=== PATIENT | male | born 1940 | race Hispanic/Latino ===

== ENCOUNTER 2020-02-28 21:57 | Inpatient (IN) | payer MEDICARE, OTHER ==
[~2020-02-28] VITALS: Ht 180.3 cm; Wt 105.5 kg
[~2020-02-28 21:57] MED LIST: APIX5TAB PO; LEVO500T2 PO; LOSA50TA64 PO
[2020-02-28] MEDS ORDERED: ACETAMINOPHEN ELIXIR 650 MG/20.3 ML UDCUP ONE (22:37)
[2020-02-28] MEDS ORDERED: SODIUM CHLORIDE 0.9% 1000ML 1,000 ML IV ONE (22:38)
[2020-02-28 22:43] LABS: BASOPHILS % (AUTO) 0.2 % (0.0-5.0); EOSINOPHILS % (AUTO) 0.3 % (0.0-8.0); HEMATOCRIT 43.2 % (42-54); MEAN CORPUSCULAR HEMOGLOBIN 30.7 pg (27.0-33.0); MEAN CORPUSCULAR HGB CONC 34.7 g/dL (32.0-36.0); MEAN CORPUSCULAR VOLUME 88.3 fL (79-99); MONOCYTES % (AUTO) 5.8 % (3.0-13.0); NEUTROPHILS % (AUTO) 84.4 % (40.0-77.0); PLATELET COUNT (AUTO) 122 K/uL (130-400); RED BLOOD CELL COUNT(AUTO) 4.89 MIL/uL (4.50-6.20); RED CELL DISTRIBUTION WIDTH 13.1 % (11.0-15.5)
[2020-02-28 22:55] LABS: CREATININE 1.4 mg/dL (0.5-1.5); POTASSIUM 3.5 mmol/L (3.5-5.1)
[2020-02-28 22:59] LABS: ALBUMIN 2.8 g/dL (3.5-5.0); BILIRUBIN,TOTAL 1.2 mg/dL (0.2-1.0); TOTAL PROTEIN, SERUM 7.6 g/dL (6.0-8.3)
[2020-02-28 23:04] LABS: APPEARANCE,URINE Cloudy (CLEAR); BILIRUBIN,URINE Negative (NEGATIVE); COLOR,URINE Yellow (YELLOW); GLUCOSE, URINE (UA) Negative (NEGATIVE); KETONES,URINE Trace mg/dL (NEGATIVE); LEUKOCYTE ESTERASE ,URINE Moderate (NEGATIVE); NITRATE,URINE Negative (NEGATIVE); OCCULT BLOOD,URINE Moderate (NEGATIVE); PROTEIN,URINE 300 mg/dL (NEGATIVE)
[2020-02-28 23:13] LABS: BACTERIA,URINE Rare /HPF (None Seen); SQUAMOUS EPITHELIAL CELL,UR Rare /HPF (0-2); WBC,URINE 26-50 /HPF (0-1)
[2020-02-28] MEDS ORDERED: CEFTRIAXONE SODIUM 1 GM ONE (23:16)
[2020-02-29] MEDS ORDERED: CEFTRIAXONE SODIUM 1 GM IV SCH ×2 (00:30→23:00)
[2020-02-29] MEDS ORDERED: LACTULOSE 20 GM/30 ML UDCUP PO PRN (00:30)
[2020-02-29] MEDS ORDERED: ACETAMINOPHEN 325 MG TAB PO PRN (00:30)
[2020-02-29] MEDS: SODIUM CHLORIDE 0.9% 1000ML 1,000 ML IV SCH ×3 (00:30→20:30)
[2020-02-29] MEDS ORDERED: ONDANSETRON HCL 4 MG/2 ML VIAL IV PRN (00:30)
[2020-02-29 06:00] VITALS: BP 140/63
[2020-02-29 07:26] VITALS: BP 143/77
[2020-02-29] MEDS: FAMOTIDINE 20MG TAB 20 MG TAB PO SCH ×2 (08:16→20:04)
[2020-02-29 08:57] LABS: BASOPHILS % (AUTO) 0.3 % (0.0-5.0); LYMPHOCYTES % (AUTO) 12.7 % (21.0-51.0); MEAN CORPUSCULAR HEMOGLOBIN 30.5 pg (27.0-33.0); MEAN CORPUSCULAR HGB CONC 33.6 g/dL (32.0-36.0); MEAN CORPUSCULAR VOLUME 90.9 fL (79-99); MONOCYTES % (AUTO) 13.2 % (3.0-13.0); NEUTROPHILS % (AUTO) 72.4 % (40.0-77.0); PLATELET COUNT (AUTO) 126 K/uL (130-400); RED BLOOD CELL COUNT(AUTO) 4.95 MIL/uL (4.50-6.20); RED CELL DISTRIBUTION WIDTH 13.6 % (11.0-15.5); WHITE BLOOD COUNT (AUTO) 7.8 K/uL (4.8-10.8)
[2020-02-29] MEDS ORDERED: ENOXAPARIN SODIUM 40 MG/0.4 ML SYRINGE SQ SCH (09:00)
[2020-02-29 09:09] LABS: ALBUMIN 2.7 g/dL (3.5-5.0); BILIRUBIN,TOTAL 0.9 mg/dL (0.2-1.0); CREATININE 1.3 mg/dL (0.5-1.5); POTASSIUM 3.9 mmol/L (3.5-5.1); TOTAL PROTEIN, SERUM 7.7 g/dL (6.0-8.3)
[2020-02-29 11:21] VITALS: BP 149/94
--- NOTE | 2020-02-29 14:28 | NUR ---
CM NOTE/IA MET WITH PATIENT AND SPOUSE AT BEDSIDE. PER SPOUSE, SHE MAKES ALL DECISIONS FOR PATIENT. STATES PATIENT LIVES WITH HER AND 2 MINOR GRANDCHILDREN, PATIENT IS DEPENDENT WITH ALL ADLS, HAS HOSPITAL BED, WC AND WOODEN DYI SHOWER BENCH, NO HH OR PROVIDER SERVICES, NO DIALYSIS AND FEELS SAFE TO RETURN HOME BUT OPEN TO SNF OR INPATIENT REHAB. PER SPOUSE, PATIENT HAS GOTTEN WEAKER AND NOW REQUIRES ALOT OF HELP SHE FEELS FRUSTRATED THAT MEDICAL TEAM AT [facility] DID NOT TELL HER WHAT WAS WRONG WITH PATIENT AND FEELS LIKE HIS HEALTH HAD DECREASED SINCE PREVIOUS HOSPITALIZATION. REPORT GIVEN TO DR. HOU INCLUDING HER OPENNESS TO SNF OR IRU. THIS CM TO FOLLOW UP. Addendum: 02/29/20 at 1442 by RIKA RODRIGUEZ RN CM Amended: Links added.
--- NOTE | 2020-02-29 15:07 | NUR ---
[id number] patient signed IM Letter, I faxed IM Letter to [phone] and placed in chart under consent tab.
[2020-02-29 16:29] VITALS: BP 168/88
[2020-02-29 19:55] VITALS: BP 162/92
[2020-02-29] MEDS: ENOXAPARIN SODIUM 100 MG/1 ML SQ SCH (20:04)
[2020-02-29] MEDS: ACETAMINOPHEN 325 MG TAB PO PRN (20:05)
[2020-02-29] MEDS: CEFTRIAXONE SODIUM 1 GM IV SCH (23:07)
[2020-02-29 23:38] VITALS: BP 157/93
[2020-03-01] MEDS: HYDRALAZINE HCL 20 MG/ML VIAL IV PRN ×2 (03:24→21:12)
[2020-03-01 03:43] VITALS: BP 180/85
[2020-03-01 04:07] VITALS: BP 152/75
[2020-03-01 05:50] LABS: BASOPHILS % (AUTO) 0.4 % (0.0-5.0); EOSINOPHILS % (AUTO) 2.2 % (0.0-8.0); HEMATOCRIT 44.4 % (42-54); LYMPHOCYTES % (AUTO) 21.4 % (21.0-51.0); MEAN CORPUSCULAR HEMOGLOBIN 30.4 pg (27.0-33.0); MEAN CORPUSCULAR HGB CONC 33.8 g/dL (32.0-36.0); MEAN CORPUSCULAR VOLUME 89.9 fL (79-99); MONOCYTES % (AUTO) 15.1 % (3.0-13.0); NEUTROPHILS % (AUTO) 60.5 % (40.0-77.0); PLATELET COUNT (AUTO) 136 K/uL (130-400); RED BLOOD CELL COUNT(AUTO) 4.94 MIL/uL (4.50-6.20); RED CELL DISTRIBUTION WIDTH 13.6 % (11.0-15.5); WHITE BLOOD COUNT (AUTO) 5.4 K/uL (4.8-10.8)
[2020-03-01] MEDS: SODIUM CHLORIDE 0.9% 1000ML 1,000 ML IV SCH ×3 (06:30→21:29)
[2020-03-01 06:41] LABS: CREATININE 1.2 mg/dL (0.5-1.5)
[2020-03-01 07:00] VITALS: BP 162/94
[2020-03-01 07:19] LABS: POTASSIUM 3.7 mmol/L (3.5-5.1)
[2020-03-01] MEDS: FAMOTIDINE 20MG TAB 20 MG TAB PO SCH ×2 (08:33→20:43)
[2020-03-01] MEDS: LOSARTAN 50 MG TABLET PO SCH (08:33)
[2020-03-01] MEDS: ENOXAPARIN SODIUM 100 MG/1 ML SQ SCH ×2 (08:33→20:44)
--- NOTE | 2020-03-01 10:07 | NUR ---
DR. GALLEGOS MADE AWARE OF PENDING CONSULT
--- NOTE | 2020-03-01 10:07 | NUR ---
CALL OUT PLACED TO DR. MARRERO OFFICE SPOKE WITH CAMELIA MADE AWARE OF PENDING CONSULT
[2020-03-01 11:00] VITALS: BP 169/85
[2020-03-01] MEDS: CEFTRIAXONE SODIUM 1 GM IV SCH ×2 (11:13→23:01)
[2020-03-01 16:00] VITALS: BP 163/86
[2020-03-01 20:00] VITALS: BP 163/97
[2020-03-02] VITALS (7 sets, daily range): BP systolic 133–158; BP diastolic 76–94
[2020-03-02] MEDS: FAMOTIDINE 20MG TAB 20 MG TAB PO SCH ×2 (07:57→20:41)
[2020-03-02] MEDS: LOSARTAN 50 MG TABLET PO SCH (07:57)
[2020-03-02] MEDS: ENOXAPARIN SODIUM 100 MG/1 ML SQ SCH ×2 (07:57→20:42)
[2020-03-02] MEDS: CEFTRIAXONE SODIUM 1 GM IV SCH ×2 (11:31→22:35)
[2020-03-02] MEDS ORDERED: LACTULOSE 20 GM/30 ML UDCUP PO PRN (13:15)
[2020-03-03 04:24] VITALS: BP 150/92
[2020-03-03 06:02] LABS: BASOPHILS % (AUTO) 0.3 % (0.0-5.0); CREATININE 1.2 mg/dL (0.5-1.5); EOSINOPHILS % (AUTO) 3.8 % (0.0-8.0); HEMATOCRIT 43.5 % (42-54); LYMPHOCYTES % (AUTO) 26.3 % (21.0-51.0); MAGNESIUM 2.2 mg/dL (1.80-2.40); MEAN CORPUSCULAR HEMOGLOBIN 30.2 pg (27.0-33.0); MEAN CORPUSCULAR HGB CONC 33.8 g/dL (32.0-36.0); MEAN CORPUSCULAR VOLUME 89.5 fL (79-99); MONOCYTES % (AUTO) 12.5 % (3.0-13.0); NEUTROPHILS % (AUTO) 56.8 % (40.0-77.0); PLATELET COUNT (AUTO) 151 K/uL (130-400); POTASSIUM 3.6 mmol/L (3.5-5.1); RED BLOOD CELL COUNT(AUTO) 4.86 MIL/uL (4.50-6.20); RED CELL DISTRIBUTION WIDTH 13.5 % (11.0-15.5); WHITE BLOOD COUNT (AUTO) 5.8 K/uL (4.8-10.8)
[2020-03-03 07:59] VITALS: BP 164/82
[2020-03-03] MEDS: FAMOTIDINE 20MG TAB 20 MG TAB PO SCH ×2 (08:26→20:18)
[2020-03-03] MEDS: LOSARTAN 50 MG TABLET PO SCH (08:26)
[2020-03-03] MEDS: ENOXAPARIN SODIUM 100 MG/1 ML SQ SCH ×2 (08:27→20:18)
[2020-03-03 11:28] VITALS: BP 142/63
--- NOTE | 2020-03-03 11:51 | NUR ---
TOLERATED STANDING X 5 MINUTES WITH MIN A. ABLE TO MARCH IN PLACE MINIMALLY. Addendum: 03/03/20 at 1152 by MOIZ RUBALCAVA PT Amended: Links added.
[2020-03-03] MEDS: CEFTRIAXONE SODIUM 1 GM IV SCH ×2 (12:24→23:09)
[2020-03-03 15:29] VITALS: BP 145/80
[2020-03-03 20:00] VITALS: BP 136/82
[2020-03-03 23:51] VITALS: BP 139/76
[2020-03-04 03:48] VITALS: BP 150/85
[2020-03-04 07:35] VITALS: BP 154/89
[2020-03-04] MEDS: FAMOTIDINE 20MG TAB 20 MG TAB PO SCH ×2 (08:17→19:03)
[2020-03-04] MEDS: LOSARTAN 50 MG TABLET PO SCH (08:17)
[2020-03-04] MEDS: ENOXAPARIN SODIUM 100 MG/1 ML SQ SCH (08:18)
[2020-03-04] MEDS: CEFTRIAXONE SODIUM 1 GM IV SCH ×2 (11:27→19:04)
[2020-03-04 11:53] VITALS: BP 145/85
[2020-03-04] MEDS: AMLODIPINE BESYLATE 5 MG TAB PO SCH (13:20)
[2020-03-04 16:26] VITALS: BP 138/79
[2020-03-04] MEDS ORDERED: APIXABAN 5 MG TABLET PO ONE (18:25)
[2020-03-04] MEDS: APIXABAN 5 MG TABLET PO SCH ×2 (19:03→19:04)
--- NOTE | 2020-03-04 19:32 | NUR ---
cm note spoke to pt regarding snf pt is agreeable requested I speak to , and called her on phone also agreeable choice letter obtained for [facility]. requested nurse perico to obtain covid swab for testing.
--- NOTE | 2020-03-04 20:00 | NUR ---
patient awake alert and oriented times 3. patient speaks portuguese and has no pain. patient voided in a urinal. patient's rapid covid antigen is negative, pending pcr results. patient is working with physical therapist is the day and is pending approval in [facility].
[2020-03-04 20:12] VITALS: BP 162/97
[2020-03-04 23:54] VITALS: BP 143/75
[2020-03-05 04:08] VITALS: BP 139/75
[2020-03-05 07:37] VITALS: BP 145/77
[2020-03-05] MEDS: LOSARTAN 50 MG TABLET PO SCH (08:25)
[2020-03-05] MEDS: FAMOTIDINE 20MG TAB 20 MG TAB PO SCH ×2 (08:25→21:10)
[2020-03-05] MEDS: APIXABAN 5 MG TABLET PO SCH ×2 (08:25→21:10)
[2020-03-05] MEDS: AMLODIPINE BESYLATE 5 MG TAB PO SCH ×2 (08:25→08:28)
[2020-03-05] MEDS: CEFTRIAXONE SODIUM 1 GM IV SCH ×2 (11:02→23:08)
[2020-03-05 11:30] VITALS: BP 127/69
--- NOTE | 2020-03-05 14:55 | NUR ---
CM NOTE/CHANGE TO [facility] CALL RECEIVED FROM NURSING STATING SPOUSE AT BEDSIDE AND WANTS TO CHANGED SNF FROM [facility] TO [facility]. MET SPOUSE IN ROOM, IAN COMPLETED FOR [facility]. [facility] CALLED, CLINICAL REFERRAL FAXED AND EMAILED TO [facility]. PENDING AUTHORIZATION AND COVID TO RESULT. CM TO FOLLOW UP.
[2020-03-05 15:39] VITALS: BP 139/75
--- NOTE | 2020-03-05 19:00 | NUR ---
DC PLAN As per am nurse report,pt is pending acceptance from [facility].
[2020-03-05 19:15] VITALS: BP 152/80
[2020-03-05] MEDS: ACETAMINOPHEN 325 MG TAB PO PRN (21:19)
[2020-03-05 23:24] VITALS: BP 158/85
[2020-03-06 03:40] VITALS: BP 136/62
[2020-03-06 05:31] LABS: ALBUMIN 2.7 g/dL (3.5-5.0); BILIRUBIN,TOTAL 0.4 mg/dL (0.2-1.0); CREATININE 1.4 mg/dL (0.5-1.5); MAGNESIUM 2.2 mg/dL (1.80-2.40); PHOSPHORUS 3.7 mg/dL (2.5-4.9); POTASSIUM 4.3 mmol/L (3.5-5.1); TOTAL PROTEIN, SERUM 7.5 g/dL (6.0-8.3)
--- NOTE | 2020-03-06 06:07 | NUR ---
NURSING Pt bathed per staff.
[2020-03-06 07:56] VITALS: BP 134/76
[2020-03-06] MEDS: AMLODIPINE BESYLATE 5 MG TAB PO SCH ×2 (08:13→11:11)
[2020-03-06] MEDS: LOSARTAN 50 MG TABLET PO SCH (08:14)
[2020-03-06] MEDS: FAMOTIDINE 20MG TAB 20 MG TAB PO SCH ×2 (08:14→20:08)
[2020-03-06] MEDS: APIXABAN 5 MG TABLET PO SCH ×2 (08:15→20:08)
[2020-03-06] MEDS: CEFTRIAXONE SODIUM 1 GM IV SCH ×2 (11:40→23:27)
[2020-03-06 11:50] VITALS: BP 119/77
[2020-03-06 16:10] VITALS: BP 135/84
[2020-03-06 20:10] VITALS: BP 169/90
[2020-03-06 23:28] VITALS: BP 138/92
[2020-03-07 04:00] VITALS: BP 134/90
[2020-03-07 08:08] VITALS: BP 136/79
[2020-03-07] MEDS: FAMOTIDINE 20MG TAB 20 MG TAB PO SCH ×2 (09:17→19:27)
[2020-03-07] MEDS: AMLODIPINE BESYLATE 5 MG TAB PO SCH ×2 (09:17→11:53)
[2020-03-07] MEDS: APIXABAN 5 MG TABLET PO SCH ×2 (09:17→19:27)
[2020-03-07] MEDS: LOSARTAN 50 MG TABLET PO SCH (09:17)
[2020-03-07 12:08] VITALS: BP 114/69
[2020-03-07] MEDS: CEFTRIAXONE SODIUM 1 GM IV SCH ×2 (12:28→22:32)
--- NOTE | 2020-03-07 14:57 | NUR ---
CM NOTE/[facility] AUTH PER [facility] AT [facility], RECEIVED AUTH FOR FACILITY BUT NOT IN NETWORK. I CALLED SARAH AT [facility], PATIENTS INSURANCE, WHO CONFIRMED AUTH BUT STATES FACILITY IS IN NETWORK. [facility] CALLED AND GIVEN SARAH PHONE NUMBER TO CONFIRM AND CLARIFY AUTH/NETWORK. [facility] CALLED ME AND STATES THAT AUTH CLARIFIED AND SNF IS IN NETWORK BUT DOES NOT HAVE BED AT THE MOMENT, OPEN BED NOT UNTIL 03/08/20. DR. NOONAN AND PRIMARY NURSE, JAVIER WIGGINS, MADE AWARE. POSS DC TO [facility] ON 03/08 VIA EMS PLANNED. EMS FORMS AND MED REC IN CHART FOR USE.
--- NOTE | 2020-03-07 15:56 | NUR ---
RDSCREEN - LOS X 7 Pt admitted with Fever, UTI. Resolved Sepsis, resolving UTI as per MD note. Pt is tolerating Heart Healthy diet order with no report of GI distress, PO intake at 75-100%. Pt LBM 03/05. Obesity Class I. Monitored labs: BUN 20, GFR 52, Alb 2.7. Recommend continue Heart healthy Diet order. RD to continue to monitor. Please notify as additional nutrition concerns arise. Thank you.
[2020-03-07 16:42] VITALS: BP 122/70
[2020-03-07 19:00] VITALS: BP 145/83
[2020-03-07 22:51] VITALS: BP 137/78
[2020-03-08 04:07] VITALS: BP 128/76
[2020-03-08] MEDS: APIXABAN 5 MG TABLET PO SCH ×2 (08:35→19:22)
[2020-03-08] MEDS: FAMOTIDINE 20MG TAB 20 MG TAB PO SCH ×2 (08:35→19:22)
[2020-03-08] MEDS: AMLODIPINE BESYLATE 5 MG TAB PO SCH ×2 (08:35→11:15)
[2020-03-08] MEDS: LOSARTAN 50 MG TABLET PO SCH (08:35)
[2020-03-08 08:44] VITALS: BP 133/78
[2020-03-08 12:00] VITALS: BP 127/76
[2020-03-08] MEDS: CEFTRIAXONE SODIUM 1 GM IV SCH ×2 (12:01→22:11)
[2020-03-08 16:00] VITALS: BP 141/72
[2020-03-08 20:00] VITALS: BP 131/78
[2020-03-09] VITALS: BP 135/77
[2020-03-09 04:00] VITALS: BP 141/75
[2020-03-09] MEDS: LOSARTAN 50 MG TABLET PO SCH (08:22)
[2020-03-09] MEDS: AMLODIPINE BESYLATE 5 MG TAB PO SCH ×2 (08:22→12:45)
[2020-03-09] MEDS: APIXABAN 5 MG TABLET PO SCH ×2 (08:22→20:42)
[2020-03-09] MEDS: FAMOTIDINE 20MG TAB 20 MG TAB PO SCH ×2 (08:22→20:41)
[2020-03-09 09:09] VITALS: BP 133/67
[2020-03-09] MEDS: CEFTRIAXONE SODIUM 1 GM IV SCH ×3 (11:26→20:45)
[2020-03-09 12:00] VITALS: BP 121/72
[2020-03-09 16:00] VITALS: BP 155/99
--- NOTE | 2020-03-09 16:30 | NUR ---
[facility] REPORT REPORT CALLED TO [facility]. IV DISCONTINUED. EMS TRANSPORT CALLED WELL.
[2020-03-09 20:47] VITALS: BP 154/87
--- NOTE | 2020-03-09 21:20 | NUR ---
TRANSFERRED PT TRANSFERRED VIA STRETCHER WITH EMS, TRANSPORTING TO [facility]. PT AWAKE AND ALERT, NO PAIN NO DISTRESS. PTS SPOUSE TOOK PTS WHEELCHAIR WITH HER.
== END 2020-03-09 21:26 | DRG 872 ==
LOC: EDH 21:57 → OBSVTOIN 02-29 00:30 → EDHIP 02-29 00:30 → 4BH 02-29 06:00
PROVIDERS: ADMIT Internal Medicine; ATTEND Internal Medicine
DX: A41.9 Sepsis, unspecified organism (principal); D68.59 Other primary thrombophilia; N39.0 Urinary tract infection, site not specified; G91.2 (Idiopathic) normal pressure hydrocephalus; I82.412 Acute embolism and thrombosis of left femoral vein; I82.432 Acute embolism and thrombosis of left popliteal vein; E87.1 Hypo-osmolality and hyponatremia; I10 Essential (primary) hypertension; F79 Unspecified intellectual disabilities; E78.5 Hyperlipidemia, unspecified; R32 Unspecified urinary incontinence; R53.1 Weakness; D69.6 Thrombocytopenia, unspecified; R26.2 Difficulty in walking, not elsewhere classified; Z20.828 Contact with and (suspected) exposure to other viral communicable diseases; Z74.01 Bed confinement status; Z79.899 Other long term (current) drug therapy; Z79.01 Long term (current) use of anticoagulants
CPT/HCPCS: 36415; 70450; 71045; 74176; 80048; 80053; 81001; 82948; 83605; 83735; 84100; 84145; 85025; 85220; 85300; 85303; 85306; 87040; 87088; 87426; 93970; 97039; 99291; G0378; J0360; J0696; J1650; J7030; U0003

== ENCOUNTER 2020-06-04 15:17 | Inpatient (IN) | payer OTHER, MEDICARE ==
[~2020-06-04] VITALS: Ht 160 cm; Wt 79.9 kg
[~2020-06-04 15:17] MED LIST changes: -APIX5TAB PO; -LEVO500T2 PO; +LEVO750T46 PO
[2020-06-04] MEDS ORDERED: 0.9%NACL 1000ML 1,000 ML IV ONE (15:42)
[2020-06-04] MEDS ORDERED: ACETAMINOPHEN 500 MG TABLET ONE (15:42)
[2020-06-04 16:04] LABS: BASOPHILS % (AUTO) 0.2 % (0.0-5.0); EOSINOPHILS % (AUTO) 0.6 % (0.0-8.0); HEMATOCRIT 43.7 % (42-54); LYMPHOCYTES % (AUTO) 7.7 % (21.0-51.0); MEAN CORPUSCULAR HEMOGLOBIN 30.7 pg (27.0-33.0); MEAN CORPUSCULAR HGB CONC 34.1 g/dL (32.0-36.0); MEAN CORPUSCULAR VOLUME 89.9 fL (79-99); MONOCYTES % (AUTO) 7.3 % (3.0-13.0); PLATELET COUNT (AUTO) 132 K/uL (130-400); RED BLOOD CELL COUNT(AUTO) 4.86 MIL/uL (4.50-6.20); RED CELL DISTRIBUTION WIDTH 13.2 % (11.0-15.5); WHITE BLOOD COUNT (AUTO) 8.6 K/uL (4.8-10.8)
[2020-06-04 16:14] LABS: INR 1.18 (0.85-1.15); PROTHROMBIN TIME 12.4 SEC (9.6-11.6)
[2020-06-04 16:15] LABS: PARTIAL THROMBOPLASTIN TIME 38.4 SEC (26.3-35.5)
[2020-06-04 16:37] LABS: CARBON DIOXIDE 26 mmol/L (21-32); CHLORIDE 98 mmol/L (101-111); CREATININE 1.5 mg/dL (0.5-1.5); GLOMERULAR FILTR. RATE CALC 48 mL/min (>60); GLUCOSE,RANDOM 119 mg/dL (70-105); POTASSIUM 3.7 mmol/L (3.5-5.1); SODIUM SERUM 137 mmol/L (136-145); UREA NITROGEN, BLOOD 17 mg/dL (7-18)
[2020-06-04 16:50] LABS: ALANINE AMINOTRANSFERASE 39 U/L (12-78); ALBUMIN 3.4 g/dL (3.5-5.0); ASPARTATE AMINOTRANSFERASE 35 U/L (10-37); BILIRUBIN,TOTAL 1.6 mg/dL (0.2-1.0); CREATINE KINASE, TOTAL 92 U/L (21-232); MYOGLOBIN 63 ng/mL (10-92); TROPONIN I < 0.04 ng/mL (0.00-0.06)
[2020-06-04 17:42] LABS: APPEARANCE,URINE Cloudy (CLEAR); BILIRUBIN,URINE Negative (NEGATIVE); COLOR,URINE Yellow (YELLOW); GLUCOSE, URINE (UA) Negative (NEGATIVE); KETONES,URINE Negative (NEGATIVE); LEUKOCYTE ESTERASE ,URINE Large (NEGATIVE); NITRATE,URINE Positive (NEGATIVE); OCCULT BLOOD,URINE Moderate (NEGATIVE); PH,URINE 5.5 (5.0-8.0); PROTEIN,URINE POS 2+ mg/dL (NEGATIVE)
[2020-06-04] MEDS ORDERED: CEFTRIAXONE 1G VIAL ONE (17:48)
[2020-06-04 17:54] LABS: BACTERIA,URINE Many /HPF (None Seen); MUCUS,URINE Few LPF (None Seen); SQUAMOUS EPITHELIAL CELL,UR Few /HPF (0-2); WBC,URINE 26-50 /HPF (0-1)
[2020-06-04] MEDS ORDERED: RENAL DOSE IV SCH (19:15)
[2020-06-04] MEDS ORDERED: NITROGLYCERIN 0.4 MG SL TAB SL PRN (19:30)
[2020-06-04] MEDS ORDERED: ACETAMINOPHEN 325 MG TAB PO PRN ×2 (19:30)
[2020-06-04] MEDS: LACTATED RINGERS 1000ML 1,000 ML IV SCH (19:30)
[2020-06-04] MEDS ORDERED: LACTULOSE 20 GM/30 ML UDCUP PO PRN (19:30)
[2020-06-04] MEDS ORDERED: MAG/ALUM/SIMETH 30 ML UDCUP PO PRN (19:30)
[2020-06-04] MEDS ORDERED: GUAIFENESIN-DM 200/20 MG 10 ML PO PRN (19:30)
[2020-06-04] MEDS ORDERED: ONDANSETRON 4MG INJ IV PRN (19:30)
[2020-06-04] MEDS: CEFTRIAXONE 1G VIAL IV SCH (19:30)
[2020-06-04] MEDS ORDERED: LEVOFLOXACIN 750 MG/D5W 150 ML 150 ML IV SCH (20:00)
[2020-06-05] MEDS: LACTATED RINGERS 1000ML 1,000 ML IV SCH ×2 (03:30→20:49)
[2020-06-05 05:30] LABS: BASOPHILS % (AUTO) 0.2 % (0.0-5.0); EOSINOPHILS % (AUTO) 0.1 % (0.0-8.0); HEMATOCRIT 42.5 % (42-54); LYMPHOCYTES % (AUTO) 8.8 % (21.0-51.0); MEAN CORPUSCULAR HEMOGLOBIN 30.1 pg (27.0-33.0); MEAN CORPUSCULAR HGB CONC 33.6 g/dL (32.0-36.0); MEAN CORPUSCULAR VOLUME 89.5 fL (79-99); MONOCYTES % (AUTO) 7.3 % (3.0-13.0); NEUTROPHILS % (AUTO) 83.3 % (40.0-77.0); PLATELET COUNT (AUTO) 115 K/uL (130-400); RED BLOOD CELL COUNT(AUTO) 4.75 MIL/uL (4.50-6.20); WHITE BLOOD COUNT (AUTO) 9.4 K/uL (4.8-10.8)
[2020-06-05 05:54] LABS: ALBUMIN 3.4 g/dL (3.5-5.0); BILIRUBIN,TOTAL 1.7 mg/dL (0.2-1.0); CREATININE 1.5 mg/dL (0.5-1.5); CRP QUANTITATIVE 165.1 mg/L (0.00-9.0); POTASSIUM 4.1 mmol/L (3.5-5.1); TOTAL PROTEIN, SERUM 7.5 g/dL (6.0-8.3)
[2020-06-05] MEDS ORDERED: ENOXAPARIN SODIUM 40 MG/0.4 ML SYRINGE SQ SCH (09:00)
[2020-06-05] MEDS ORDERED: ENOXAPARIN SODIUM 40 MG/0.4 ML SYRINGE SQ ONE (09:08)
[2020-06-05] MEDS ORDERED: LEVOFLOXACIN 750 MG/D5W 150 ML 150 ML ONE (09:08)
[2020-06-05] MEDS ORDERED: ACETAMINOPHEN 325 MG TAB ONE ×2 (09:09→16:52)
[2020-06-05] MEDS ORDERED: APIX5TAB PO (10:54)
[2020-06-05] MEDS ORDERED: AMLO-257 PO (10:54)
[2020-06-05] MEDS ORDERED: ATOR10TA69 PO (10:54)
[2020-06-05] MEDS ORDERED: CEFTRIAXONE 1G VIAL ONE (17:11)
[2020-06-05 18:24] LABS: CREATININE 1.5 mg/dL (0.5-1.5); MAGNESIUM 1.7 mg/dL (1.80-2.40); POTASSIUM 3.6 mmol/L (3.5-5.1)
[2020-06-05] MEDS ORDERED: LIDOCAINE HCL-MPF 1% 2ML VIAL IJ PRN (18:45)
[2020-06-05] MEDS ORDERED: POTASSIUM CHLORIDE 20MEQ/100ML 100 ML IV PRN (18:45)
[2020-06-05] MEDS ORDERED: POTASSIUM CHLORIDE 10% ELIXIR 20 MEQ/15 ML UDCUP PO PRN (18:45)
[2020-06-05] MEDS: CEFTRIAXONE 1G VIAL IV SCH (19:30)
[2020-06-05] MEDS ORDERED: APIXABAN 2.5 MG TABLET PO ONE (19:44)
[2020-06-05] MEDS ORDERED: ATORVASTATIN 10 MG TABLET ONE (19:44)
[2020-06-05] MEDS: APIXABAN 5 MG TABLET PO SCH (20:46)
[2020-06-05] MEDS: ATORVASTATIN 10 MG TABLET PO SCH (20:47)
[2020-06-05 20:50] VITALS: BP 152/85
[2020-06-06] VITALS (7 sets, daily range): BP systolic 120–157; BP diastolic 64–81
[2020-06-06 04:42] LABS: BASOPHILS % (AUTO) 0.1 % (0.0-5.0); EOSINOPHILS % (AUTO) 0.1 % (0.0-8.0); HEMATOCRIT 38.2 % (42-54); LYMPHOCYTES % (AUTO) 8.9 % (21.0-51.0); MEAN CORPUSCULAR HEMOGLOBIN 30.7 pg (27.0-33.0); MEAN CORPUSCULAR HGB CONC 34.6 g/dL (32.0-36.0); MEAN CORPUSCULAR VOLUME 88.8 fL (79-99); NEUTROPHILS % (AUTO) 81.6 % (40.0-77.0); PLATELET COUNT (AUTO) 107 K/uL (130-400); RED CELL DISTRIBUTION WIDTH 13.1 % (11.0-15.5); WHITE BLOOD COUNT (AUTO) 6.8 K/uL (4.8-10.8)
[2020-06-06 05:44] LABS: ALBUMIN 2.5 g/dL (3.5-5.0); BILIRUBIN,TOTAL 0.6 mg/dL (0.2-1.0); CREATININE 1.3 mg/dL (0.5-1.5); CRP QUANTITATIVE 149.4 mg/L (0.00-9.0); MAGNESIUM 1.7 mg/dL (1.80-2.40); POTASSIUM 3.7 mmol/L (3.5-5.1); TOTAL PROTEIN, SERUM 6.8 g/dL (6.0-8.3)
[2020-06-06] MEDS ORDERED: PHARMACY COMMUNICATION MISC SCH (08:45)
[2020-06-06] MEDS: LACTATED RINGERS 1000ML 1,000 ML IV SCH ×2 (09:39→20:32)
[2020-06-06] MEDS: MEROPENEM 1 GM VIAL IVP SCH ×2 (11:14→20:29)
[2020-06-06] MEDS: APIXABAN 5 MG TABLET PO SCH ×2 (11:14→20:29)
[2020-06-06] MEDS: ATORVASTATIN 10 MG TABLET PO SCH (20:29)
[2020-06-07 03:24] VITALS: BP 120/71
[2020-06-07 04:51] LABS: BASOPHILS % (AUTO) 0.4 % (0.0-5.0); EOSINOPHILS % (AUTO) 1.8 % (0.0-8.0); HEMATOCRIT 36.5 % (42-54); LYMPHOCYTES % (AUTO) 21.5 % (21.0-51.0); MEAN CORPUSCULAR HGB CONC 35.1 g/dL (32.0-36.0); MEAN CORPUSCULAR VOLUME 88.4 fL (79-99); MONOCYTES % (AUTO) 13.2 % (3.0-13.0); NEUTROPHILS % (AUTO) 62.9 % (40.0-77.0); PLATELET COUNT (AUTO) 113 K/uL (130-400); RED BLOOD CELL COUNT(AUTO) 4.13 MIL/uL (4.50-6.20); RED CELL DISTRIBUTION WIDTH 13.2 % (11.0-15.5); WHITE BLOOD COUNT (AUTO) 4.9 K/uL (4.8-10.8)
[2020-06-07 05:08] LABS: ALBUMIN 2.4 g/dL (3.5-5.0); BILIRUBIN,TOTAL 0.5 mg/dL (0.2-1.0); CREATININE 1.2 mg/dL (0.5-1.5); CRP QUANTITATIVE 110.5 mg/L (0.00-9.0); POTASSIUM 3.4 mmol/L (3.5-5.1); TOTAL PROTEIN, SERUM 6.5 g/dL (6.0-8.3)
[2020-06-07] MEDS: KCL 20 MEQ ERTAB PO PRN ×2 (06:03→11:24)
[2020-06-07] MEDS: LACTATED RINGERS 1000ML 1,000 ML IV SCH (08:06)
[2020-06-07 08:40] VITALS: BP 142/86
[2020-06-07] MEDS: MEROPENEM 1 GM VIAL IVP SCH ×2 (10:11→21:05)
[2020-06-07] MEDS: APIXABAN 5 MG TABLET PO SCH ×2 (10:54→21:05)
[2020-06-07 11:37] VITALS: BP 136/79
[2020-06-07 16:00] VITALS: BP 129/75
[2020-06-07 20:05] VITALS: BP 134/75
[2020-06-07] MEDS: ATORVASTATIN 10 MG TABLET PO SCH (21:05)
[2020-06-08] VITALS (7 sets, daily range): BP systolic 137–158; BP diastolic 72–93
[2020-06-08] MEDS: LACTATED RINGERS 1000ML 1,000 ML IV SCH ×2 (06:07→20:43)
[2020-06-08 06:50] LABS: ALBUMIN 2.6 g/dL (3.5-5.0); BILIRUBIN,TOTAL 0.5 mg/dL (0.2-1.0); CREATININE 1.2 mg/dL (0.5-1.5); POTASSIUM 3.7 mmol/L (3.5-5.1); TOTAL PROTEIN, SERUM 6.8 g/dL (6.0-8.3)
[2020-06-08] MEDS: APIXABAN 5 MG TABLET PO SCH ×2 (08:01→20:42)
[2020-06-08] MEDS: MEROPENEM 1 GM VIAL IVP SCH ×2 (08:01→20:42)
[2020-06-08] MEDS: ATORVASTATIN 10 MG TABLET PO SCH (20:42)
[2020-06-09 03:34] VITALS: BP 148/79
[2020-06-09 07:49] VITALS: BP 150/82
[2020-06-09] MEDS: APIXABAN 5 MG TABLET PO SCH (08:14)
[2020-06-09] MEDS: MEROPENEM 1 GM VIAL IVP SCH (08:14)
[2020-06-09 11:38] VITALS: BP 142/75
[2020-06-09 16:24] VITALS: BP 143/79
== END 2020-06-09 19:38 | disposition home or self-care (01) | DRG 872 ==
LOC: EDH 15:17 → EDHIP 19:24 → 3CH 06-05 19:46
PROVIDERS: ADMIT Family Medicine; ATTEND Family Medicine
DX: A41.50 Gram-negative sepsis, unspecified (principal); N39.0 Urinary tract infection, site not specified; N17.9 Acute kidney failure, unspecified; Z16.24 Resistance to multiple antibiotics; I82.402 Acute embolism and thrombosis of unspecified deep veins of left lower extremity; Z16.12 Extended spectrum beta lactamase (ESBL) resistance; Z68.41 Body mass index [BMI] 40.0-44.9, adult; N18.31 Chronic kidney disease, stage 3a; E66.01 Morbid (severe) obesity due to excess calories; Z20.822 Contact with and (suspected) exposure to COVID-19; I12.9 Hypertensive chronic kidney disease with stage 1 through stage 4 chronic kidney disease, or unspecified chronic kidney disease; E78.5 Hyperlipidemia, unspecified; D69.6 Thrombocytopenia, unspecified
CPT/HCPCS: 36415; 71045; 71250; 74176; 80048; 80053; 81001; 82550; 82728; 83605; 83615; 83735; 83874; 84145; 84484; 85025; 85378; 85610; 85651; 85730; 86140; 86900; 86901; 87040; 87077; 87088; 87186; 87426; 93005; 93970; G0378; J0696; J1650; J1956; J2185; J7030; J7120; U0003

== ENCOUNTER → 2022-01-29 | Outpatient (CLI) | payer MEDICARE, OTHER ==
[~2022-01-29] MED LIST changes: +AMLO-257 PO; +APIX5TAB PO; +ATOR10TA69 PO; -LEVO750T46 PO
== END | disposition home or self-care (01) ==
LOC: WHH 10:12
PROVIDERS: ATTEND Family Medicine
DX: R21 Rash and other nonspecific skin eruption (principal); I10 Essential (primary) hypertension; E78.5 Hyperlipidemia, unspecified; E66.9 Obesity, unspecified; F03.90 Unspecified dementia, unspecified severity, without behavioral disturbance, psychotic disturbance, mood disturbance, and anxiety; Z68.29 Body mass index [BMI] 29.0-29.9, adult; Z79.899 Other long term (current) drug therapy; Z79.01 Long term (current) use of anticoagulants; Z99.3 Dependence on wheelchair
CPT/HCPCS: G0463

== ENCOUNTER → 2025-04-06 | Outpatient (CLI) | payer OTHER ==
--- NOTE | 2025-04-07 09:19 | HMCIMG ---
EXAMINATION: CT Abdomen and Pelvis without contrast. CLINICAL HISTORY: Other microscopic hematuria. TECHNIQUE: Multiple contiguous axial CT images were obtained through the abdomen and pelvis. Coronal and sagittal reconstructions were also obtained. COMPARISON: None. FINDINGS: Included chest reveals chronic obstructive pulmonary disease changes. There are coronary artery calcifications. No renal or ureteral stones. No hydronephrosis. The liver, gallbladder, spleen, pancreas, and adrenal glands appear within normal limits. Fecal matter filled large bowel loops. Rest of the bowel loops are normal in caliber without evidence of obstruction, ileus, or obvious bowel wall thickening. Urinary bladder is well distended with normal wall thickening. Prostate is unremarkable. There is no ascites or lymphadenopathy. There are atheromatous wall calcification of the aorta and iliac arteries. No acute or suspicious osseous abnormality. There are multilevel mild degenerative spondylotic changes of the spine IMPRESSION: No bowel obstruction or inflammation. Constipation. Normal findings. No urinary calculi. No hydronephrosis. Atherosclerosis and coronary artery disease. /Jo Ann
== END | disposition home or self-care (01) ==
LOC: RAH 12:16
PROVIDERS: ATTEND Urology
DX: K59.00 Constipation, unspecified (principal); I25.10 Atherosclerotic heart disease of native coronary artery without angina pectoris; J44.9 Chronic obstructive pulmonary disease, unspecified; I70.0 Atherosclerosis of aorta; M47.817 Spondylosis without myelopathy or radiculopathy, lumbosacral region; R31.29 Other microscopic hematuria
CPT/HCPCS: 74176

== ENCOUNTER → 2025-04-10 | Outpatient (CLI) | payer OTHER ==
--- NOTE | 2025-04-11 06:06 | HMCIMG ---
EXAMINATION: ULTRASOUND OF THE RETROPERITONEUM. CLINICAL HISTORY: UTI. COMPARISON: CT abdomen and pelvis without contrast dated 04/06/2025. TECHNIQUE: Real-time grayscale ultrasound images of the kidneys. FINDINGS: The kidneys are normal in caliber, the right kidney measures 9.2 x 5.6 x 3.4 cm and the left kidney measures 9.9 x 5.6 x 4.8 cm in its craniocaudal, AP, and transverse dimensions respectively. There is normal renal cortical thickness, and increased cortical echogenicity. There is no renal calculus or hydronephrosis. The urinary bladder is normal in caliber and wall thickness (0.4 cm). There are no calculi in the urinary bladder. Pre-void volume is 160 cc and post-void volume is 200 cc. The prostate gland is normal in caliber and measures 4.1 x 3.4 x 4.2 cm in the craniocaudal, AP, and transverse dimensions respectively with a volume of 30 cc. IMPRESSION: Increased echogenicity of both the kidneys may reflect renal parenchymal disease. Recommend clinical correlation and with laboratory parameters. Significant post void residue. No significant interval change. /Jo Ann
== END | disposition home or self-care (01) ==
LOC: RAH 07:58
PROVIDERS: ATTEND Urology
DX: N39.0 Urinary tract infection, site not specified (principal); R31.29 Other microscopic hematuria
CPT/HCPCS: 76770